=== PATIENT | male | born 1990 | race Caucasian/White ===

== ENCOUNTER 2022-12-01 16:28 | Observation (INO) | payer MEDICAID ==
[2022-12-01] MEDS ORDERED: Lactated Ringers 1,000 ML IV ONE ×2 (16:46→18:59)
[2022-12-01] MEDS ORDERED: Sodium Chloride 0.9% 10 ML Syringe FLUSH PRN (16:46)
[2022-12-01] MEDS ORDERED: Ondansetron 4 MG/2 ML SDV IVPUSH ONE (16:46)
[2022-12-01] MEDS ORDERED: cloNIDine 0.1 MG Tab PO ONE (16:47)
[2022-12-01] MEDS ORDERED: LORazepam 2 MG/ML SDV IVPUSH ONE (16:47)
[2022-12-01 17:27] LABS: CHLORIDE,CL 104 mmol/L (98-107); SODIUM,NA 142 mmol/L (136-145)
[2022-12-01 17:31] LABS: ANION GAP 17.4 mmol/L (5-15); ESTIMATED GFR 91 mL/min (>=60)
[2022-12-01] MEDS ORDERED: Prochlorperazine 10 MG/2 ML SDV IV ONE (18:20)
[2022-12-01] MEDS ORDERED: Potassium Phosphates 30 MMOLE in Sodium Chloride 0.9% 250 ML IV ONE (18:46)
[2022-12-01] MEDS ORDERED: Ondansetron 4 MG/2 ML SDV IVPUSH PRN (18:51)
[2022-12-01] MEDS ORDERED: Flumazenil 0.1 MG/ML 5 ML MDV IVPUSH PRN (18:55)
[2022-12-01] MEDS ORDERED: Prochlorperazine 10 MG/2 ML SDV IV PRN (18:56)
[2022-12-01] MEDS: LORazepam 2 MG/ML SDV IVPUSH PRN (20:22)
[2022-12-01] MEDS: cloNIDine 0.1 MG Tab PO SCH (22:18)
[2022-12-02] MEDS ORDERED: Phosphorus #1 250 MG Tab PO ONE (00:30)
[2022-12-02] MEDS: LORazepam 2 MG/ML SDV IVPUSH PRN (00:49)
[2022-12-02] MEDS: cloNIDine 0.1 MG Tab PO SCH (06:10)
[2022-12-02 07:22] LABS: ANION GAP 14.6 mmol/L (5-15)
== END 2022-12-02 09:45 | disposition home or self-care (01) ==
LOC: VM.ED 16:28 → VM.MS 18:09
PROVIDERS: ADMIT Physician Assistant; ATTEND Physician Assistant
DX: F11.23 Opioid dependence with withdrawal (principal); R11.2 Nausea with vomiting, unspecified; R10.84 Generalized abdominal pain
CPT/HCPCS: 36415; 80053; 83605; 83735; 84100; 85025; 96361; 96374; 96375; 96376; 99284-25; A9270-GY; G0378; J0780; J2060; J2405; J7120